=== PATIENT | male | born 1960 | race African-American/Black ===

== ENCOUNTER 2019-04-13 21:53 | Emergency (ER) | payer OTHER ==
[~2019-04-13 21:53] MED LIST: Iopamidol 370 76% 100 ML VIAL ONE
[2019-04-13 22:09] LABS: #Basophils 0.1 thou/uL (0.0-0.2); #Lymphocytes 1.6 thou/uL (1.20-3.40); #Monocytes 0.5 thou/uL (0.11-0.59); #Neutrophils 4.3 thou/uL (1.40-6.50); %Basophils 1.1 % (0.0-1.0); %Eosinophils 0.6 % (0.0-10.0); %Lymphocytes 24.9 % (21.0-51.0); %Monocytes 6.9 % (0.0-10.0); %Neutrophils 66.5 % (42.0-75.0); Hemoglobin 12.4 g/dL (14.0-18.0); Mean Corpuscular HGB CONC 33.6 g/dL (32.0-36.0); Mean Corpuscular Hemoglobin 33.4 pg (27.0-31.0); Mean Corpuscular Volume 99.5 fL (78.0-98.0); Mean Platelet Volume 7.3 fL (7.4-10.4); Platelet Count 242 thou/uL (130-400); RBC Distribution Width 11.1 % (11.5-14.5); Red Blood Cell (RBC) Count 3.72 mill/uL (4.70-6.10); White Blood Cell (WBC) Count 6.5 thou/uL (4.8-10.8)
--- NOTE | 2019-04-13 22:15 | RAD ---
AP pelvis one view HISTORY: Fall. Pelvic injury. FINDINGS: Left-sided pelvis appear somewhat rotated compared to the right, although no displaced frac tures are apparent and the pubic symphysis and sacroiliac joints appear to be maintained. Sacral alae are intact. No hip fractures visible. Mild degenerative changes of the hips. Phleboliths project over the pelvis. IMPRESSION: No acute osseous abnormalities are reliably demonstrated. If there is high clinical suspi cion, please consider CT of the pelvis for better characterization.
--- NOTE | 2019-04-13 22:17 | RAD ---
Chest one view HISTORY: Fall. Chest injury. FINDINGS: Cardiac silhouette is magnified by projection. Pulmonary vasculature is unremarkable. Media stinum is midline. No lobar consolidation or evidence of pneumothorax. Old bilateral rib fractures. IMPRESSION: No active cardiopulmonary abnormalities are demonstrated.
--- NOTE | 2019-04-13 22:22 | CT ---
CT head noncontrast HISTORY: Fall. Head injury. FINDINGS: There is no evidence of acute intracranial hemorrhage or infarct. The ventricles appear nor mal in size, shape and position. There is no mass effect or shift of midline structures. Visualized paranasal sinuses remain well-aerated. IMPRESSION: No acute intracranial abnormalities are demonstrated.
--- NOTE | 2019-04-13 22:24 | CT ---
CT cervical spine noncontrast HISTORY: Fall. Neck injury. FINDINGS: Vertebral body heights are maintained. Minimal degenerative retrolisthesis at the C3-4 leve l. Disc space narrowing most pronounced at the C5-6 and C6-7 levels. Osteophytosis throughout the vertebral bodies and facets. Central canal stenoses most pronounced at the C5-6 and C6-7 levels. Mult ilevel significant bilateral foraminal stenoses. No acute fracture or dislocation are apparent. IMPRESSION: Prominent OsteoArthritic changes throughout the cervical spine. No acute osseous abnormal ities are demonstrated.
--- NOTE | 2019-04-13 22:32 | CT ---
CT chest with IV contrast CT abdomen and pelvis with IV contrast CT thoracic spine noncontrast CT lumbar spine noncontrast HISTORY: Fall from horse. Chest injury. Abdomen injury. Back injury. FINDINGS: No evidence of pneumothorax or mediastinal hematoma. Old bilateral rib fractures. Solid org ans of the abdomen and pelvis are intact. Urinary bladder is distended and intact. No free air or free fluid. Calcification throughout the arterial structures. Prominent osteophytosis throughout the thoracolumbar spine. Vertebral body heights and alignment are maintained. Nondisplaced fractures involve the right transverse processes of L1, L2, and L3. No unstable fractures are apparent. IMPRESSION: Nondisplaced RIGHT L1, L2, and L3 transverse process fractures. No unstable injury is farooq arent. Atherosclerosis.
[2019-04-13 22:35] LABS: ALT (SGPT) 27 U/L (8-55); AST (SGOT) 30 U/L (5-34); Albumin 4.1 g/dL (3.5-5.0); Alkaline Phosphatase 67 U/L (40-150); Anion Gap 16 mmol/L (10-20); BUN (Urea Nitrogen) 10 mg/dL (8.4-25.7); Bilirubin, Total 0.4 mg/dL (0.2-1.2); Calc. Creatinine Clearance 0 mL/min (70-130); Carbon Dioxide 21 mmol/L (22-29); Chloride 105 mmol/L (98-107); Estimated GFR-MDRD 74; Globulin 3.1 g/dL (2.4-3.5); Glucose 141 mg/dL (70-105); Lipase 72 U/L (8-78); Potassium 3.8 mmol/L (3.5-5.1); Protein, Total 7.2 g/dL (6.0-8.3); Sodium 138 mmol/L (136-145)
[2019-04-13 22:37] LABS: Bilirubin Negative (Negative); Blood, Urine Negative (Negative); Clarity Clear (Clear); Glucose, Urine (Dipstick) Normal (Negative); Leukocyte Negative Leu/uL (Negative); Nitrite Negative (Negative); Protein, Urine (Dipstick) Negative (Neg-Trace); Urobilinogen Normal mg/dL (Less than 2)
== END 2019-04-13 23:20 | disposition home or self-care (01) ==
LOC: ERS 21:53
DX: S32.019A Unspecified fracture of first lumbar vertebra, initial encounter for closed fracture (principal); S32.029A Unspecified fracture of second lumbar vertebra, initial encounter for closed fracture; S32.039A Unspecified fracture of third lumbar vertebra, initial encounter for closed fracture; F10.129 Alcohol abuse with intoxication, unspecified; E11.9 Type 2 diabetes mellitus without complications; Z79.84 Long term (current) use of oral hypoglycemic drugs; Z79.899 Other long term (current) drug therapy; V80.010A Animal-rider injured by fall from or being thrown from horse in noncollision accident, initial encounter
CPT/HCPCS: 70450; 71045; 71260; 72125; 72170; 74177; 80053; 81003; 83690; 85025; G0390; Q9967